=== PATIENT | female | born 2000 | race Hispanic/Latino ===

== ENCOUNTER 2018-07-28 14:57 | Day surgery (SDC) | payer OTHER ==
--- NOTE | 2018-07-28 17:17 | PDOC.LDHP ---
Labor and Delivery H&P Chief complaint: other HPI: Patient of Dr Vega Seen in L&D Bed 11, at 1700 Here for possible contractions HPI: 18 yo [id number], EGA 38 weeks. HX right ovary removed due to a "cyst" (2 years ago), here for possible contractions today. No LOF, no VB, some thick white dsch noted. No recent sex or trauma. No other issues. Last seen Saturday with Dr Vega and was called 2cm then. Feels good FM. EDC 08/11/18 Complete ROS performed and negative as per HPI Current gestational age (weeks): 38 Due date: 08/11/18 Dating criteria: last menstrual period Grav: 2 Para: 0 Current complications: none Abnormal US findings: No Current medications: pre- vitamins Previous surgical history: none (incisional (vertical) right oophorectomy) Allergies/Adverse Reactions: Allergies Allergy/AdvReac Type Severity Reaction Status Date / Time No Known Allergies Allergy Verified 07/28/18 15:33 Social history: none - Physical Exam Vital signs reviewed and normal: yes (114/66 90; FHTs 130s) General: NAD, resting Heart: RRR Lungs: CTAB Abdomen: gravid Extremeties: no edema FHT: category 1 [place] contractions every: one contraction every 10-12 minutes - Vaginal Exam cm dilated: 1 (1-2) Effacement: 25% Station: -2 - Assessment Threatened labor at early term as a [id number]...evidence of vaginal candidiasis on exam - Plan Plan: observation in L&D, other (patient seen at bedside with Sima Urban, MS3. History complete. Exam relatively unchanged from last Saturday. Threatened labor reviewed. No indication for maternal admission at this time. Ok with outpatient f/u)
== END 2018-07-28 17:36 | disposition home or self-care (01) ==
LOC: L&D/OP 14:57
PROVIDERS: ATTEND Obstetrics & Gynecology
DX: O47.1 False labor at or after 37 completed weeks of gestation (principal); O98.813 Other maternal infectious and parasitic diseases complicating pregnancy, third trimester; Z3A.38 38 weeks gestation of pregnancy
CPT/HCPCS: 99283

== ENCOUNTER 2018-08-01 22:36 | Inpatient (IN) | payer OTHER ==
[2018-08-01 23:42] LABS: Amnisure Test RUPTURE DETECTED (No Rupture)
[2018-08-01 23:43] LABS: Amnisure Internal Control QC ACCEPTABLE (ACCEPTABLE)
[2018-08-01] MEDS ORDERED: Penicillin G Potassium 5 MILL.UNITS in Sodium Chloride 0.9% 100 ML IVPB SCH (23:45)
[2018-08-01] MEDS ORDERED: Ibuprofen 800 MG TAB PO PRN (23:59)
[2018-08-01] MEDS ORDERED: HYDROcodone/Acetaminophen 5/325 mg Tablet PO PRN ×2 (23:59)
[2018-08-01] MEDS ORDERED: Butorphanol Tartrate 1 MG/ML VIAL SLOW IVP PRN (23:59)
[2018-08-01] MEDS ORDERED: Promethazine HCl 25 MG/ML VIAL IM PRN (23:59)
[2018-08-01] MEDS ORDERED: Lidocaine 1% (PF) 30 ML VIAL SC PRN (23:59)
--- NOTE | 2018-08-02 00:35 | HP ---
DATE OF SERVICE: 08/02/2018 TIME OF EVALUATION: 0000 hours to 0015 hours. LOCATION: Labor and Delivery in bed 5. REASON FOR EVALUATION: Suspected rupture of membranes at 38 to 39 weeks. This is a patient of Dr. Vega, who currently is unavailable. The patient was seen at bedside and ex amination performed. HISTORY OF PRESENT ILLNESS: In brief, this is a 18-year-old G2, P0 with 1 prior miscarriage with a history of an exploratory laparotomy for a "ovarian cyst" in [place] about 2 years ago. She states that she had possible leakage of fluid since 0800 hours, but came in now as her contractions w ere starting to pick and shovel man prior to arrival. She denies vaginal bleeding, recent trauma, headache, or v isual changes. She has good movement. REVIEW OF SYSTEMS: Complete review of systems was performed and is otherwise negative unless specifi ed in the [facility]. PAST SURGICAL HISTORY: Exploratory laparotomy through a vertical skin incision for a benign ovarian cyst. The patient is unable to provide further details on this surgery. ALLERGIES: None. PAST MEDICAL HISTORY: Negative. SOCIAL HISTORY: Negative for alcohol, tobacco, or drug use. MEDICATIONS: vitamins. PHYSICAL EXAMINATION: GENERAL: She is afebrile and normotensive. Clinically, she is in no acute distress. ABDOMEN: Soft and nontender and size consistent with dates. Estimated weight is approximately 6 pounds. PELVIC: On cervical examination, she is about 3 cm dilated, about 50%-75% effaced, and about -1 stat ion. No vaginal bleeding noted. LABORATORY ASSESSMENT: AmniSure was collected and was positive. On record review, GBS was noted to be positive. On monitor, heart tones are in the 130s-140s with moderate variability and accelerations. Tocodynamometer shows irregular contraction pattern about every 3-5 minutes, but they are of low ampl itude and irregular in frequency. ASSESSMENT: This is a 18-year-old 2, para 0 at early term with probable high leakag e of fluid with AmniSure positive. GBS positive. PLAN: 1. Due to the patient being GBS positive, with possible high leak amniotic rupture, we will admit th e patient for labor and delivery. 2. The patient's cervix is favorable at 3 cm. 3. If she does not show spontaneous progression of her cervix or spontaneous increasing contraction pattern, we will begin Pitocin at approximately 0300 hours. 4. Penicillin for GBS. 5. Pain medications p.r.n. 6. Epidural p.r.n.
[2018-08-02] MEDS: Lactated Ringer's 1,000 ML IV SCH ×2 (00:40→09:51)
[2018-08-02 01:11] LABS: Hemoglobin 13.2 g/dL (12.0-16.0); Mean Corpuscular HGB CONC 33.2 g/dL (32.0-36.0); Mean Corpuscular Hemoglobin 28.5 pg (25.0-35.0); Mean Corpuscular Volume 85.8 fL (78.0-98.0); Mean Platelet Volume 8.1 fL (7.4-10.4); Platelet Count 252 thou/uL (130-400); RBC Distribution Width 11.8 % (11.5-14.5); Red Blood Cell (RBC) Count 4.64 mill/uL (4.00-5.20); White Blood Cell (WBC) Count 11.4 thou/uL (4.8-10.8)
[2018-08-02] MEDS: Penicillin G 2.5 MILL.units 2.5 MILL.UNITS in Premix Bag 1 BAG IVPB SCH ×5 (01:11→16:53)
[2018-08-02 01:56] LABS: HBSAg Index 0.38 S/CO (0-0.99); HIV (1/2) Antibody/Antigen Non-Reactive (NonReactive); HIV 1/2 INDEX 0.16 S/CO (<1.00); Hep B Surf Ag Non-Reactive S/CO (NonReactive)
[2018-08-02] MEDS: NS w/ Oxytocin 10 units 500 ML IV SCH (03:12)
[2018-08-02 04:17] LABS: Syphilis Antibody Nonreactive (Nonreactive); Syphilis Antibody Index 0.12 S/CO (<1.00 Non-Reactive)
--- NOTE | 2018-08-02 06:28 | PDOC.EVN ---
Event Note - Event Note Event Note: AROM: Patient with intact forebag: Exam by me: AROM done to place IUPC for pitocin management. Plan D/W patient...arom performed without issue, clear fluis. IUPC placed. No FHR decels noted
--- NOTE | 2018-08-02 09:03 | PDOC.EVN ---
Event Note - Event Note Event Note: Received report from Dr. Edwards. 18 yo LA G1 at term with SROM, now on pitocin with IUPC and Carlos. Ts reassurng, [facility] q 2-3. Last exam by RN is , vtx. Plan: Continue pitocin induction and ABX for GBS ppx.
[2018-08-02] MEDS ORDERED: Methylergonovine 0.2 MG/ML VIAL ONE (12:34)
[2018-08-02] MEDS ORDERED: Butorphanol Tartrate 1 MG/ML VIAL ONE (12:36)
[2018-08-02] MEDS: Lidocaine 1% (PF) 30 ML VIAL ONE ×2 (12:49→12:50)
--- NOTE | 2018-08-02 12:49 | PDOC.OPDEL ---
OB Operative/Delivery Note Delivery Dr/Surgeon: Alverto Pre-Delivery Diagnosis: active labor Procedure/Post Delivery Dx: spontaneous vaginal delivery Weeks gestation: 38 Anesthesia: local - Additional Findings/Plan Placenta delivered: spontaneous Repaired Obstetrical Laceration: 2nd degree Estimated blood loss: QBL pending Compilations/Other Findings: Viable male delivered OP over small 2* MLE 2* to decreasing maternal pushing effort, exhaustion. Placenta intact [place]. Atony x 1 tx. with massafe, pit drip and Methergine .2 I x 1 with good response. MLE repaired in layers. Baby and mom to recover in LDR. Post delivery plan: routine recovery
[2018-08-02] MEDS: Butorphanol Tartrate 1 MG/ML VIAL ONE ×2 (12:51→12:52)
[2018-08-02] MEDS: NS / Oxytocin 40 units/1000ml 1,000 ML IV PRN ×2 (12:53→14:14)
[2018-08-02] MEDS ORDERED: Zolpidem Tartrate 5 MG TAB PO PRN (13:00)
[2018-08-02] MEDS ORDERED: Methylergonovine 0.2 MG/ML VIAL IM PRN (13:00)
[2018-08-02] MEDS ORDERED: NS / Oxytocin 40 units/1000ml 1,000 ML IV SCH (13:00)
[2018-08-02] MEDS ORDERED: diphenhydrAMINE 25 MG CAP PO PRN (13:00)
[2018-08-02] MEDS ORDERED: Milk Of Magnesia 30 ML UDCUP PO PRN (13:00)
[2018-08-02] MEDS ORDERED: Adacel (T-DAP) 0.5 ML VIAL IM ONE (13:00)
[2018-08-02] MEDS ORDERED: Preparation H Ointment 28 GM TUBE PR PRN (13:00)
[2018-08-02] MEDS ORDERED: Bisacodyl 10 MG SUPP PR PRN (13:00)
[2018-08-02] MEDS ORDERED: traMADol HCl 50 MG TAB PO PRN (13:00)
[2018-08-02] MEDS ORDERED: Lidocaine 1% (PF) 30 ML VIAL SC SCH (13:15)
[2018-08-02] MEDS: Ferrous Sulfate 325 MG TAB PO SCH (16:53)
[2018-08-02] MEDS: Docusate Calcium (SURFAK) 240 MG CAP PO SCH (21:51)
--- NOTE | 2018-08-03 02:24 | PDOC.PP ---
Post Progress Note Post Day #: PPD#1 Subjective: Resting, no complaints. PO intake tolerated: yes Ambulation: yes Vital Signs (12 hours) Temp Pulse Resp BP 08/02/18 16:00 98.4 F 81 14 117/64 08/02/18 15:15 99.0 F 73 18 117/67 Weight Weight 79.379 kg - Physical Examination General: NAD Respiratory: non-labored breathing Abdominal: no distention Neurological: no gross focal deficits Psychiatric: normal affect Result Diagrams: 08/02/18 00:46 Additional Labs: Post Labs Blood Type B POSITIVE 08/02/18 00:46 Hep Bs Antigen Non-Reactive S/CO (NonReactive) 08/02/18 00:46 - Assessment/Plan Doing well s/p . Routine PP care.
[2018-08-03 07:35] LABS: Hemoglobin 10.8 g/dL (12.0-16.0); Mean Corpuscular HGB CONC 33.3 g/dL (32.0-36.0); Mean Corpuscular Hemoglobin 29.1 pg (25.0-35.0); Mean Corpuscular Volume 87.4 fL (78.0-98.0); Mean Platelet Volume 7.5 fL (7.4-10.4); Platelet Count 198 thou/uL (130-400); Red Blood Cell (RBC) Count 3.72 mill/uL (4.00-5.20); White Blood Cell (WBC) Count 12.4 thou/uL (4.8-10.8)
[2018-08-03] MEDS: Docusate Calcium (SURFAK) 240 MG CAP PO SCH ×2 (09:20→21:23)
[2018-08-03] MEDS: Prenatal Vitamin 1 TAB PO SCH (09:20)
[2018-08-03] MEDS: NS w/ Oxytocin 10 units 500 ML IV SCH (09:22)
[2018-08-03] MEDS: Ferrous Sulfate 325 MG TAB PO SCH ×2 (09:22→20:58)
[2018-08-03] MEDS: Penicillin G 2.5 MILL.units 2.5 MILL.UNITS in Premix Bag 1 BAG IVPB SCH ×3 (09:22→20:59)
[2018-08-04] MEDS: Penicillin G 2.5 MILL.units 2.5 MILL.UNITS in Premix Bag 1 BAG IVPB SCH ×4 (02:06→07:31)
[2018-08-04] MEDS: NS w/ Oxytocin 10 units 500 ML IV SCH (04:17)
[2018-08-04] MEDS: Ferrous Sulfate 325 MG TAB PO SCH (07:30)
[2018-08-04 08:02] VITALS: BP 109/59; TEMP 98
--- NOTE | 2018-08-04 08:21 | PDOC.PP ---
Post Progress Note Post Day #: 2 Subjective: doing well, some latch difficulty, min lochia PO intake tolerated: yes Flatus: yes Ambulation: yes Vital Signs (12 hours) Temp Pulse Resp BP Pulse Ox 08/04/18 08:02 98.0 F 72 20 109/59 L 98 08/04/18 00:20 98.4 F Weight Weight 175 lb - Physical Examination General: NAD Respiratory: non-labored breathing Fundus firm & at: below umb Skin: no rash Neurological: no gross focal deficits Psychiatric: normal affect Result Diagrams: 08/03/18 07:19 Additional Labs: Post Labs Blood Type B POSITIVE 08/02/18 00:46 Hep Bs Antigen Non-Reactive S/CO (NonReactive) 08/02/18 00:46 (1) 38 weeks gestation of Code(s): Z3A.38 - 38 WEEKS GESTATION OF Status: Acute (2) Vaginal delivery Code(s): O80 - ENCOUNTER FOR FULL-TERM UNCOMPLICATED DELIVERY Status: Acute - Assessment/Plan PPD2 doing well, plan for DC after LC today.
[2018-08-04] MEDS: Prenatal Vitamin 1 TAB PO SCH (08:35)
[2018-08-04] MEDS: Docusate Calcium (SURFAK) 240 MG CAP PO SCH (08:35)
[2018-08-04] MEDS ORDERED: Sodium Chloride 0.9% 10 ML ONE (12:12)
== END 2018-08-04 14:35 | disposition home or self-care (01) | DRG 807 ==
LOC: L&D/OP 22:36 → L&D 08-02 00:29 → 3SE 08-02 15:05
PROVIDERS: ADMIT Obstetrics & Gynecology; ATTEND Obstetrics & Gynecology
PROC: 0KQM0ZZ Repair Perineum Muscle, Open Approach (ICD-10-PCS; principal; 2018-08-02)
PROC: 10E0XZZ Delivery of Products of Conception, External Approach (ICD-10-PCS; 2018-08-02)
PROC: 0W8NXZZ Division of Female Perineum, External Approach (ICD-10-PCS; 2018-08-02)
PROC: 10907ZC Drainage of Amniotic Fluid, Therapeutic from Products of Conception, Via Natural or Artificial Opening (ICD-10-PCS; 2018-08-02)
PROC: 10H07YZ Insertion of Other Device into Products of Conception, Via Natural or Artificial Opening (ICD-10-PCS; 2018-08-02)
DX: O99.824 Streptococcus B carrier state complicating childbirth (principal); Z37.0 Single live birth; O75.81 Maternal exhaustion complicating labor and delivery; O62.2 Other uterine inertia; O70.1 Second degree perineal laceration during delivery; Z3A.38 38 weeks gestation of pregnancy
CPT/HCPCS: 36415; 84112; 85027; 86780; 86850; 86900; 86901; 87340; 87389; 90715; 99285; J0595; J2001; J2210; J2540; J7050